=== PATIENT | female | born 1960 | race Caucasian/White ===

== ENCOUNTER 2016-04-29 20:02 | Emergency (ER) | payer BC ==
[2016-04-29] MEDS ORDERED: LIDOCAINE 2% VISC 15 ML UDC ONE (22:51)
== END 2016-04-29 23:12 | disposition home or self-care (01) ==
LOC: ER 20:02
DX: J03.80 Acute tonsillitis due to other specified organisms (principal); J01.00 Acute maxillary sinusitis, unspecified; J01.10 Acute frontal sinusitis, unspecified; Z86.718 Personal history of other venous thrombosis and embolism; Z79.01 Long term (current) use of anticoagulants; Z79.899 Other long term (current) drug therapy
CPT/HCPCS: 36415; 80053; 85025; 86403; 87804; 87880